=== PATIENT | female | born 1965 | race Caucasian/White ===

== ENCOUNTER 2021-12-30 23:49 | Inpatient (IN) ==
[2021-12-31] MEDS ORDERED: DILTIAZEM 50 MG/10 ML VIAL IV STA ×2 (00:55→05:17)
[2021-12-31] MEDS ORDERED: DILTIAZEM 25 MG/5 ML VIAL IV ONE (00:57)
[2021-12-31 01:29] LABS: INR 1.1; PT Patient Result 12.5 SECS (10.5-12.0); Partial Thromboplastin Time 25.8 SECS (23.8-32.1)
[2021-12-31 01:38] LABS: Albumin 2.5 G/DL (3.4-5.0); Bilirubin,Total 0.6 MG/DL (0.20-1.00); Calcium 8.9 MG/DL (8.5-10.1); Osmolality,Calculated 286.5 MOS/KG (273-304); Potassium 4.6 MMOL/L (3.5-5.1); Total Protein 6.2 G/DL (6.4-8.2)
[2021-12-31 01:48] LABS: Basophils # 0.1 10*3/uL (0.0-0.2); Basophils % 0.4 % (0.0-0.8); Eosinophils # 0.1 10*3/uL (0.0-0.87); Eosinophils % 1.1 % (0.00-10.9); Hematocrit 44.6 VOL% (35.7-47.0); Hemoglobin 13.6 GM/DL (12.0-16.0); Immature Granulocytes % 0.3 %; Immature Granulocytes Absolute 0.04 #; Lymphocytes # 2.3 10*3/uL (1.4-4.0); Lymphocytes % 17.6 % (21.3-54.2); Mean Corpuscular HGB Conc 30.5 GM/DL (32-36); Mean Corpuscular Volume 81.7 FL (87-102); Mean Platelet Volume 10.7 FL (9.6-12.0); Monocytes % 6.5 % (1.7-12.7); NRBC # 0.02 10*3/uL; Neutrophils % 74.1 % (38.7-73.9); Platelet Count 382 T/CUMM (130-400); Red Blood Count 5.46 MC/CUMM (3.8-5.5); Red Cell Distribution Width 17.2 % (9.3-17.3); White Blood Count 13.2 T/CUMM (4-12)
[2021-12-31] MEDS ORDERED: FUROSEMIDE 20 MG/2 ML VIAL IV STA (01:58)
[2021-12-31] MEDS ORDERED: FUROSEMIDE 40 MG/4 ML VIAL ONE (01:59)
[2021-12-31] MEDS ORDERED: FUROSEMIDE 40 MG/4 ML VIAL IV STA (01:59)
[2021-12-31] MEDS ORDERED: ONDANSETRON 4 MG/2 ML VIAL IV PRN (02:16)
[2021-12-31] MEDS ORDERED: ACETAMINOPHEN 325 MG TABLET PO PRN (02:16)
[2021-12-31] MEDS ORDERED: GLUCAGON 1 MG VIAL IM PRN (02:16)
[2021-12-31] MEDS ORDERED: DEXTROSE 10% 250 ML BAG IV PRN (02:16)
[2021-12-31] MEDS: INSULIN REGULAR 100 UNIT/ML SUBCUT SCH ×4 (07:40→21:58)
[2021-12-31] MEDS: RIVAROXABAN 20 MG TABLET PO SCH (08:37)
[2021-12-31] MEDS ORDERED: FUROSEMIDE 20 MG TABLET PO SCH (09:00)
[2021-12-31] MEDS ORDERED: APIXABAN 5 MG TABLET PO SCH (09:00)
[2021-12-31] MEDS ORDERED: GLUCOSAMINE HCL 500 MG PO SCH (09:00)
[2021-12-31] MEDS: DOCUSATE SODIUM 100 MG CAPSULE PO SCH ×2 (09:32→21:38)
[2021-12-31] MEDS: PANTOPRAZOLE 40 MG TABLET PO SCH (09:33)
[2021-12-31] MEDS: DILTIAZEM INJ 100 MG in SODIUM CHLORIDE 0.9% 100 ML IV SCH (11:06)
[2021-12-31] MEDS: SOTALOL 80 MG TABLET PO SCH ×2 (11:16→21:38)
[2021-12-31] MEDS ORDERED: ALBUTEROL 2.5 MG/3 ML NEB RESP TX PRN (12:08)
[2021-12-31 14:33] LABS: RBC,Urine 1138 /HPF (0-4); Squamous Epithelial Cell,Urine Few /HPF (0-10)
[2021-12-31 14:34] LABS: Bilirubin,Urine Moderate mg/dL (Negative); Blood, Urine Large mg/dL (Negative); Glucose,Urine (UA) Negative (Negative); Ketones,Urine Negative (Negative); Nitrite,Urine Positive (Negative); Protein,Urine >=300 mg/dL (Negative); Urine Appearance Cloudy (Clear); Urine Color Brown (Yellow); Urine Specific Gravity 1.025 (1.001-1.035)
[2021-12-31] MEDS ORDERED: cefTRIAXone 1,000 MG in SODIUM CHLORIDE 0.9% 100 ML IV SCH (17:00)
[2021-12-31] MEDS: FUROSEMIDE 40 MG/4 ML VIAL IV SCH (17:18)
[2021-12-31] MEDS: ARMODAFINIL 200 MG PO SCH (19:42)
[2022-01-01 05:11] LABS: Immature Granulocytes % 0.4 %; Immature Granulocytes Absolute 0.04 #; Lymphocytes # 2.1 10*3/uL (1.4-4.0); Monocytes % 6.7 % (1.7-12.7)
[2022-01-01 05:25] LABS: Calcium 8.6 MG/DL (8.5-10.1); Osmolality,Calculated 288.3 MOS/KG (273-304); Potassium 3.9 MMOL/L (3.5-5.1)
[2022-01-01 05:35] LABS: Basophils # 0.1 10*3/uL (0.0-0.2); Basophils % 0.5 % (0.0-0.8); Eosinophils # 0.2 10*3/uL (0.0-0.87); Hematocrit 41.6 VOL% (35.7-47.0); Hemoglobin 12.7 GM/DL (12.0-16.0); Lymphocytes % 21.3 % (21.3-54.2); Mean Corpuscular HGB Conc 30.5 GM/DL (32-36); Mean Corpuscular Volume 81.4 FL (87-102); Mean Platelet Volume 10.7 FL (9.6-12.0); Neutrophils % 69.1 % (38.7-73.9); Platelet Count 339 T/CUMM (130-400); Red Blood Count 5.11 MC/CUMM (3.8-5.5)
[2022-01-01] MEDS: DILTIAZEM INJ 100 MG in SODIUM CHLORIDE 0.9% 100 ML IV SCH (05:38)
[2022-01-01] MEDS ORDERED: GLIMEPIRIDE 2 MG TABLET PO SCH (08:00)
[2022-01-01] MEDS ORDERED: MULTIVITAMIN (CENTRUM) TABLET PO SCH (09:00)
[2022-01-01] MEDS: INSULIN REGULAR 100 UNIT/ML SUBCUT SCH ×2 (09:38→12:56)
[2022-01-01] MEDS ORDERED: ONDANSETRON 4 MG/2 ML VIAL ONE (10:22)
[2022-01-01] MEDS ORDERED: LIDOCAINE 2% 5 ML VIAL ONE (10:22)
[2022-01-01] MEDS ORDERED: propofoL 200 MG/20 ML VIAL IV ONE (10:22)
[2022-01-01] MEDS: FUROSEMIDE 40 MG/4 ML VIAL IV SCH (10:56)
[2022-01-01] MEDS: RIVAROXABAN 20 MG TABLET PO SCH (10:56)
[2022-01-01] MEDS: PANTOPRAZOLE 40 MG TABLET PO SCH (10:57)
[2022-01-01] MEDS: ARMODAFINIL 200 MG PO SCH (10:57)
[2022-01-01] MEDS: SOTALOL 80 MG TABLET PO SCH (10:57)
[2022-01-01] MEDS: DOCUSATE SODIUM 100 MG CAPSULE PO SCH (10:57)
[2022-01-01 12:34] VITALS: BP 100/47
== END 2022-01-01 13:35 | disposition home or self-care (01) | DRG 308 ==
LOC: N.ED 23:49 → N.EDINP 12-31 02:13 → N.TELES 12-31 17:15
PROVIDERS: ADMIT Family Medicine; ATTEND Family Medicine